=== PATIENT | female | born 1980 | race Caucasian/White ===

== ENCOUNTER 2024-03-31 01:11 | Emergency (ER) | payer BC, OTHER ==
[2024-03-31 02:05] LABS: BASOPHILS ABSOLUTE AUTO 0.1 K/mm3 (0.0-0.2); BASOPHILS PERCENT AUTO 0.4 % (0.0-1.0); EOSINOPHILS ABSOLUTE AUTO 0.1 K/mm3 (0.0-0.4); EOSINOPHILS PERCENT AUTO 0.4 % (0.0-6.0); HEMATOCRIT 39.7 % (37.0-47.0); HEMOGLOBIN 13.7 gm/dl (12.0-16.0); IMMATURE GRAN ABSOLUTE AUTO 0.05 K/mm3 (0.00-0.05); IMMATURE GRAN PERCENT AUTO 0.4 % (0.0-0.4); LYMPHOCYTES ABSOLUTE AUTO 1.2 K/mm3 (1.0-4.8); LYMPHOCYTES PERCENT AUTO 8.7 % (24.0-44.0); MEAN CORPUSCULAR HEMOGLOBIN 31.6 pg (28.0-32.0); MEAN CORPUSCULAR HGB CONC 34.5 g/dl (32.0-36.0); MEAN CORPUSCULAR VOLUME 91.5 fl (83.0-99.0); MEAN PLATELET VOLUME 9.3 fl (9.4-12.3); MONOCYTES ABSOLUTE AUTO 0.8 K/mm3 (0.0-0.8); MONOCYTES PERCENT AUTO 5.4 % (0.0-8.0); NEUTROPHILS ABSOLUTE AUTO 11.8 K/mm3 (1.8-7.7); NEUTROPHILS PERCENT AUTO 84.7 % (41.0-71.0); PLATELET COUNT,PLT 260 K/mm3 (150-400); RED BLOOD CELL COUNT 4.34 M/mm3 (4.10-5.30); WHITE BLOOD CELL COUNT,WBC 13.86 K/mm3 (3.9-11.3)
[2024-03-31 02:07] LABS: APPEARANCE,URINE SLT CLOUDY (Clear); BILIRUBIN,URINE NEGATIVE (Negative); COLOR,URINE YELLOW (Yellow); GLUCOSE,URINE NEGATIVE (Negative); KETONES,URINE TRACE (Negative); LEUKOCYTE ESTERASE,URINE NEGATIVE (Negative); NITRITE,URINE NEGATIVE (Negative); OCCULT BLOOD,URINE NEGATIVE (Negative); PH,URINE 7.5 (5.0-8.0); PROTEIN,URINE 2+ (Negative); UROBILINOGEN,URINE 0.2 (0.2-1.0)
[2024-03-31] MEDS: Sodium Chloride 0.9% 1,000 ML IV ONE (02:07)
[2024-03-31] MEDS: Sodium Chloride 0.9% 10 ML Syringe FLUSH PRN (02:09)
[2024-03-31] MEDS: Ondansetron 4 MG/2 ML SDV IVPUSH ONE (02:13)
[2024-03-31 02:15] LABS: BACTERIA,URINE MODERATE /hpf (FEW); RBC,URINE 0-5 /hpf (0-5); WBC,URINE 0-5 /hpf (0-5)
[2024-03-31 02:16] LABS: HYALINE CASTS,URINE 0-5 /lpf (0-5); MUCUS,URINE FEW /hpf (FEW)
[2024-03-31 02:31] LABS: A/G RATIO 1.2 (1-2); ALANINE AMINOTRANSFERASE,ALT 27 U/L (14-59); ALBUMIN 4.1 g/dl (3.4-5.0); ALKALINE PHOSPHATASE 48 U/L (46-116); ANION GAP 14.9 (5-15); ASPARTATE AMNIOTRANSFERASE,AST 17 U/L (15-37); BILIRUBIN TOTAL 0.4 mg/dL (0.2-1.0); BLOOD UREA NITROGEN,BUN 26 mg/dL (7-18); BUN/CREATININE RATIO 21.7 (14-18); C-REACTIVE PROTEIN 0.08 mg/dL (<0.30); CALCIUM 8.6 mg/dL (8.5-10.1); CARBON DIOXIDE,CO2 26 mEq/L (21-32); CHLORIDE,CL 99 mEq/L (98-107); CREATININE 1.2 mg/dL (0.55-1.02); ESTIMATED GFR 58 mL/min (>60); GLUCOSE RANDOM 110 mg/dL (70-99); MAGNESIUM 1.8 mg/dL (1.8-2.4); POTASSIUM,K 3.9 mEq/L (3.5-5.1); PROTEIN TOTAL,TP 7.6 g/dl (6.4-8.2); SODIUM,NA 136 mEq/L (136-145); TROPONIN I HIGH SENSITIVITY < 4 pg/mL (<=51)
[2024-03-31 02:43] LABS: CORONAVIRUS COVID-19 NAA NEGATIVE (NEGATIVE); INFLUENZA A NAA NEGATIVE (NEGATIVE); RESPIRATORY SYNCYTIAL VIR NAA NEGATIVE (NEGATIVE)
[2024-03-31] MEDS: Ondansetron 4 MG Tab.DIS PO ONE (03:05)
== END 2024-03-31 03:10 | disposition home or self-care (01) ==
LOC: JD.ED 01:11
DX: A08.4 Viral intestinal infection, unspecified (principal); R55 Syncope and collapse; I10 Essential (primary) hypertension; Z79.899 Other long term (current) drug therapy
CPT/HCPCS: 0241U; 36415; 80053; 81001; 83735; 84484; 85025; 86140; 93005; 96361; 96374; 99284; A9270; J2405; J3490; J7030